=== PATIENT | male | born 1985 | race Caucasian/White ===

== ENCOUNTER 2025-03-30 17:39 | Emergency (ER) | payer MEDICAID ==
[~2025-03-30] VITALS: Ht 182.9 cm; Wt 97.0 kg
[2025-03-30 17:45] VITALS: BP 139/86; PULSE 84; RESP 18; O2SAT 99
--- NOTE | 2025-03-30 17:51 | Physician Documentation ---
History of Present Illness ~ Chief Complaint: Numbness Stated Complaint: "I THINK I AM HAVING A STROKE" Primary Medical Doctor: NONE Source: patient Mode of Arrival: POV Exam Limitations: no limitations HPI HPI being completed as part of his medical screening exam. Patient is a 39-year-old male who presented for possible stroke. He woke up about an hour and a half ago with numbness to his left arm and up to his left neck. History of arthritis. He states history of his arms going numb intermittently. Neurovascularly intact. Medication Reconciliation Allergies: Coded Allergies: No Known Allergies (Unverified , 03/30/25) Past Medical History Past Medical History: Arthritis Past Surgical History: no surgical history Alcohol Use: Rarely Drug Use: marijuana Lives with: Family Lives In: Home Occupation: employed Physical Exam Pulse Oximetry Reflects: adequate oxygenation General Appearance Physical exam completed in triage: Neuro: Cranial nerves II-XII grossly intact. Motor strength 5/5 in all four extremities.Sensation symmetric and intact to light touch throughout. Finger to nose intact, heel to meeks intact, and rapid alternating hand movement intact. No pronator drift. No Deficits were appreciated. Cardiac: Regular rate and rhythm. Respiratory: Lungs are clear. Progress Results/Orders Results/Orders Vital Signs 03/30/25 17:45 Pulse 84 Resp 18 B/P (MAP) 139/86 Pulse Ox 99 Medical Decision Making Findings Screening exam complete: Patient presented with complaints of possible stroke. He is neurovascularly intact in triage. Moving all extremities. His signs and symptoms are not consistent with acute CVA at this time. Departure Disposition: 07 LEFT AWOL/ELOPED Impression: Primary Impression: Numbness Referrals: NO PRIMARY CARE PROVIDER (PCP) Signature Scribe Signature: No scribe Attestation: The note accurately reflects work and decisions made by me.Lupe Kilgore - DELANEY 04/01/25 15:35 This note was created with the assistance of voice recognition software whereby errors in grammar, syntax, and/or spelling may have occurred despite active proofreading efforts by the author. Please do not hesitate to contact the provider for clarification or for questions regarding the content of this document. LUPE KILGORE NP Mar 30, 2025 17:51
== END 2025-03-30 19:49 | disposition left against medical advice (07) ==
LOC: ER 17:40
DX: R20.0 Anesthesia of skin (principal); M19.90 Unspecified osteoarthritis, unspecified site; F12.90 Cannabis use, unspecified, uncomplicated
CPT/HCPCS: 99282